=== PATIENT | female | born 1950 | race Caucasian/White ===

== ENCOUNTER 2025-08-17 19:18 | Emergency (ER) | payer MEDICARE, MEDICAID ==
[~2025-08-17] VITALS: Ht 157.5 cm; Wt 60.5 kg
[2025-08-17 19:59] LABS: MEAN PLATELET VOLUME 6.9 FL (7.4-10.4); RED CELL DISTRIBUTION WIDTH 16.3 % (11.5-14.5)
[2025-08-17 20:14] LABS: LEUKOCYTE ESTERASE ,URINE TRACE (Neg); NITRITES, URINE NEGATIVE (Neg); OCCULT BLOOD,URINE TRACE-INTACT (Neg)
[2025-08-17 20:19] LABS: UA COLLECTION TYPE CLN CATCH MIDSTREAM
[2025-08-17 20:21] LABS: MUCUS STRANDS NONE SEEN /LPF (Neg); SQUAMOUS EPITHELIAL CELL,UR FEW /LPF (FEW)
[2025-08-17 20:26] LABS: CREATININE 0.62 MG/DL (0.40-0.90); TOTAL CARBON DIOXIDE 29.4 MMOL/L (24-32); eGFR > 90 ML/MIN
--- NOTE | 2025-08-17 21:54 | Physician Documentation ---
History of Present Illness ~ Chief Complaint: Abdominal Pain Stated Complaint: ABDOMINAL PAIN Time Seen by MD: 21:45 HPI Patient presents to the emergency room with epigastric pain that began this evening. Patient has history of reflux and believes this is related to this. She takes daily Protonix. She reports compliance with the Protonix for the past 20 years. Denies nausea. She reports that she still has her gallbladder. Daughter at bedside helping with translation Medication Reconciliation Allergies: Coded Allergies: Sulfa (Sulfonamide Antibiotics) (Verified Allergy, Unknown, 08/17/25) Scheduled Famotidine (Pepcid), 1 TAB PO Q12H Scheduled PRN Mag Hydrox/Al Hydrox/Simeth* (Maalox Advanced Suspension*), 30 ML PO PRN PRN for indigestion/dyspepsia Review of Systems ROS All review of systems negative except as per HPI Physical Exam Vital Signs: Temperature: 98.6, Source: Temporal, Heart Rate: 110, Respiratory Rate: 15, BP: 139/87, Pulse Oximetry: 100 Physical Exam General: Patient is awake, alert, oriented x4 in mild distress Head: Normocephalic and atraumatic. Eyes: Conjunctival normal. EOMI. PERRL. ENT: Mucous membranes moist. Neck: Supple, trachea is midline. Chest: Clear to auscultation bilaterally without rales, rhonchi, or wheezes. There is no accessory muscle use or retractions. Cardiac: RRR without murmurs, gallops, or rubs. Abd: Soft, nondistended, mild epigastric tenderness to palpation without peritonitis Progress Results/Orders Results/Orders Orders - DAVIN CARNES MD Cult Urine + [place] [address] (08/17/25 20:21) Chest,Single View (08/17/25 22:07) Cta Chest Pe (08/17/25 23:50) Completed Orders - DAVIN CARNES MD Cbc/Diff (08/17/25 19:33) BMP (08/17/25 19:33) Lipase (08/17/25 19:33) CMP (08/17/25 19:33) Ua W/Microscopic, Cult If Ind (08/17/25 19:45) Hs Troponin I W Calculations (08/17/25 21:53) Electrocardiogram (08/17/25 21:57) Ondansetron Disint. Tablet (Zofran Odt T (08/17/25 22:10) Mag & Alum Hydrox/Simeth Susp (Maalox Or (08/17/25 22:10) Lidocaine 2% Viscous (Xylocaine 2% Visco (08/17/25 22:10) Chest,Single View (08/17/25 22:07) Hs Troponin I W Calculations (08/17/25 22:11) Famotidine Tablet (Pepcid Tablet) (08/17/25 22:55) Normal Saline 1000ml (0.9% Sodium Chlori (08/17/25 23:00) Cta Chest Pe (08/17/25 23:50) Acetaminophen 1,000mg/100ml Iv (Ofirmev (08/17/25 23:00) Famotidine/Pf Iv Inj (Pepcid Iv Inj) (08/17/25 23:05) Iohexol 350mg/Ml 100ml (Omnipaque 350mg/ (08/17/25 23:10) Medications Received in ER Medications (Trade) Dose Ordered Sig/Erin Route PRN Reason Start Time Stop Time Status Last Admin Dose Admin (Zofran ODT tablet) 4 mg ONCE ONCE PO 08/17/25 22:10 08/17/25 22:11 DC 08/17/25 22:16 4 MG (Maalox oral suspension) 30 ml ONCE ONCE PO 08/17/25 22:10 08/17/25 22:11 DC 08/17/25 22:16 30 ML (Xylocaine 2% Viscous 15mL cup) 15 ml ONCE ONCE MM 08/17/25 22:10 08/17/25 22:11 DC 08/17/25 22:16 15 ML Sodium Chloride 1,000 ml @ 1,000 mls/hr ONCE ONCE IV 08/17/25 23:00 08/17/25 23:59 DC 08/17/25 23:37 1,000 MLS/HR Acetaminophen 100 ml @ 400 mls/hr ONCE ONCE IV 08/17/25 23:00 08/17/25 23:14 DC 08/17/25 23:37 400 MLS/HR (Pepcid IV inj) 20 mg ONCE ONCE IV 08/17/25 23:05 08/17/25 23:06 DC 08/17/25 23:37 20 MG Vital Signs 08/17/25 08/17/25 08/17/25 08/18/25 19:30 21:59 22:02 00:10 Temp 98.6 98.1 Pulse 110 96 92 Resp 15 20 18 16 B/P (MAP) 139/87 169/91 (117) 121/58 (79) Pulse Ox 100 99 97 Laboratory Tests Test 08/17/25 19:42 08/17/25 19:45 08/17/25 22:08 White Blood Count 12.0 H Red Blood Count 4.48 Hemoglobin 11.0 L Hematocrit 33.3 L Mean Corpuscular Volume 74.3 L Mean Corpuscular Hemoglobin 24.4 L Mean Corpuscular Hemoglobin Concent 32.9 L Red Cell Distribution Width 16.3 H Platelet Count 345 Mean Platelet Volume 6.9 L Neutrophils (%) (Auto) 66.9 Lymphocytes (%) (Auto) 22.4 Monocytes (%) (Auto) 7.8 Eosinophils (%) (Auto) 2.4 Basophils (%) (Auto) 0.5 Neutrophils # (Auto) 8.0 H Lymphocytes # (Auto) 2.7 Monocytes # (Auto) 0.9 Eosinophils # (Auto) 0.3 Basophils # (Auto) 0.1 CBC Comment Sodium Level 136 Potassium Level 4.0 Chloride Level 99 Carbon Dioxide Level 29.4 Anion Gap 8 Blood Urea Nitrogen 13 Creatinine 0.62 Estimated GFR/1.73 m2 > 90 BUN/Creatinine Ratio 21.0 H Glucose Level 104 Calcium Level 9.1 Total Bilirubin 0.2 Aspartate Amino Transf (AST/SGOT) 24 Alanine Aminotransferase (ALT/SGPT) 23 Alkaline Phosphatase 119 H Troponin I High Sensitivity 6 5 Total Protein 8.2 Albumin 3.6 Globulin 4.6 H Albumin/Globulin Ratio 0.8 L Lipase 26 Chemistry Comments Urine Specimen Description Cln catch midstream Urine Color Straw Urine Clarity Clear Urine pH 7.0 Urine Specific [place] 1.010 Urine Protein Negative Urine Glucose (UA) Negative Urine Ketones Negative Urine Occult Blood Trace-intact Urine Nitrite Negative Urine Bilirubin Negative Urine Urobilinogen 0.2 Urine Leukocyte Esterase Trace H Urine RBC 3-10 Urine WBC 5-10 H Urine Squamous Epithelial Cells Few Urine Bacteria Few Urine Mucus None seen Urine Culture Indicated Indicated Volume Urine Centrifuged 10 ml Urine Comment Microbiology Date/Time Source Procedure Growth Status 08/17/25 20:21 Urine Clean Catch Midstream Urine Culture - Preliminary Culture received. Resulted Medical Decision Making Additional information obtaine: N/A Findings Patient presents to the emergency room for evaluation of epigastric pain. Differentials include but are not limited to ACS, reflux, musculoskeletal pain, pulmonary embolism, aortic pathology, pneumothorax therefore emergent labs and imaging indicated. Labs reassuring for no major pathologic derangements along with negative troponins x2. Positive response to GI cocktail. I believe this is related to patient's history of heartburn. We will add small course of Pepcid to patient's regimen. Diff Dx GI Bleed:Consideration: Include: Blood loss anemia Diff Dx Pain:Considerations: Include: -Missed Diff Dx N/V/D:Considerations: Include: Diarrhea - bacterial Diff Dx Rectal:Considerations: Include: Fistula Departure Disposition: HOME / SELF CARE / HOMELESS Impression: Primary Impression: Acute gastritis Condition: Improved Discharge Instructions: Abdominal Pain (Nonspecific) Additional Instructions: Follow up with your doctor for possible referral to brief writer. Return for black stools, chest pain or any other disconcerting symptoms. CT scan things did find an aortic aneurysm described as below: Dilated ascending thoracic aorta measures 4.3 cm. This is not require any emergent intervention but you should let your doctor know that has this we will need to be followed. Also, that has speak to your doctor about possible gallbladder involvement in inquire about an outpatient ultrasound. Referrals: NO PRIMARY CARE PROVIDER (PCP) Prescriptions Ondansetron 8mg ODT (Ondansetron Odt) 8 Mg Tab.rapdis 1 TAB PO Q6H for nausea/vomiting for 3 Days, #12 TAB 0 Refills Prov: DAVIN CARNES MD 08/18/25 Mag Hydrox/Al Hydrox/Simeth* (Maalox Advanced Suspension*) 200 Mg-200 Mg-20 Mg/5 Ml Oral.susp 30 ML PO PRN PRN for indigestion/dyspepsia, #355 ML Prov: DAVIN CARNES MD 08/17/25 Famotidine (Pepcid) 20 Mg Tablet 1 TAB PO Q12H, #30 TAB 0 Refills Prov: DAVIN CARNES MD 08/17/25 Signature Scribe Signature: No scribe Attestation: The note accurately reflects work and decisions made by me.Davin Carnes MD 08/18/25 00:53 DAVIN CARNES MD Aug 17, 2025 21:54
--- NOTE | 2025-08-17 22:00 | ELECTROCARDIOGRAPH REPORT ---
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 Magan Cheng Measurements Intervals [place] Rate: 98 P: 53 [place]: 183 QRS: -1 QRSD: 79 T: 48 QT: 333 QTc: 426 Interpretive Statements Atrial-paced complexes Minimal ST elevation, inferior leads Electronically Signed On 08-22-2025 20:44:[address] Magan Cheng Please click the below link to view image of tracing.
[2025-08-17 22:02] VITALS: TEMP 98.1
[2025-08-17] MEDS: mag hydrox/Alum hydrox/simeth 30ml oral suspension PO ONE (22:16)
[2025-08-17] MEDS: LIDOcaine 2% Viscous 15ml cup MM ONE (22:16)
[2025-08-17] MEDS: ondansetron 4mg rapidly disintigrating tab PO ONE (22:16)
--- NOTE | 2025-08-17 22:30 | RADIOLOGY REPORT ---
CHEST RADIOGRAPH Indication: cp Technique: 1 view Comparison: None FINDINGS: Lines and Tubes: External leads. Lungs/Pleura: No focal consolidation, pleural effusion or pneumothorax. Cardiomediastinum: Normal heart size. Aortic atherosclerosis. Other: No acute osseous abnormality. IMPRESSION: 1. No acute cardiopulmonary abnormality.
[2025-08-17] MEDS ORDERED: MAG355OR18 PO (22:57)
[2025-08-17] MEDS ORDERED: FAMO-129 PO (22:57)
[2025-08-17] MEDS: normal saline 1000ml 1,000 ML IV ONE (23:37)
[2025-08-17] MEDS: acetaminophen 1,000mg/100ml IV 100 ML IV ONE (23:37)
[2025-08-17] MEDS: famotidine/PF 10 mg/ml inj IV ONE (23:37)
--- NOTE | 2025-08-18 00:23 | RADIOLOGY REPORT ---
CTA Chest with intravenous contrast INDICATION: cp, back pain COMPARISON: None TECHNIQUE: Multidetector spiral CTA of the chest was performed of the chest with intravenous contrast. PULMONARY ANGIOGRAPHY PROTOCOL was utilized using a bolus- tracking technique centered on the main pulmonary artery. Axial, coronal and sagittal multiplanar and MIP reformats were performed. Radiation Dose : 1. Chest: CTDI volume is 21.16 mGy. Dose-length product is 730.94 mGy*cm The dose indicators for CT are the volume Computed Tomography (CT) Dose Index (CTDIvol) and the Dose Length Product (DLP), and are measured in units of mGy and mGy-cm, respectively. These indicators are not patient dose, but values generated from the CT scanner acquisition factors. The report includes radiation exposure data for exposures received during this examination. Findings: Pulmonary artery: No pulmonary embolism. Lower neck: Normal thyroid. Lungs: No focal consolidation, pleural effusion or pneumothorax. Moderate bibasilar atelectasis. Heart/Vascular Structures: Cardiomegaly. No pericardial effusion. Dilated ascending thoracic aorta measures 4.3 cm. Atherosclerotic vascular calcifications. Lymph Nodes: No adenopathy Musculoskeletal: No acute osseous abnormality. Soft tissues: Normal. Upper abdomen: Limited portions of the upper abdomen are unremarkable. IMPRESSION: 1. No pulmonary embolism. 2. No acute thoracic finding. 3. Cardiomegaly. 4. Dilated ascending thoracic aorta.
[2025-08-18] MEDS ORDERED: ONDA-245 PO (00:52)
[2025-08-18 01:02] VITALS: BP 132/66; PULSE 68; RESP 16; O2SAT 96
== END 2025-08-18 01:03 | disposition home or self-care (01) ==
LOC: ER 19:19
DX: K29.00 Acute gastritis without bleeding (principal); Z79.899 Other long term (current) drug therapy; Z88.2 Allergy status to sulfonamides; Z95.0 Presence of cardiac pacemaker
CPT/HCPCS: 36415; 71045; 71275; 80053; 81001; 83690; 84484; 85025; 87088; 93005; 96361; 96374; 96375; 99285; J0131; J3490; J7030; Q9967